=== PATIENT | male | born 1975 | race Caucasian/White ===

== ENCOUNTER 2018-03-10 00:34 | Inpatient (IN) | payer MEDICAID, OTHER ==
[~2018-03-10] VITALS: Ht 182.9 cm; Wt 101.2 kg
[2018-03-10] VITALS (74 sets, daily range): BP systolic 88–143; BP diastolic 49–86
[2018-03-10] MEDS ORDERED: SODIUM CHLORIDE 0.9% 1,000 ML IV ONE (00:51)
[2018-03-10] MEDS ORDERED: ONDANSETRON HCL 4MG/2ML INJ IV STA (00:51)
[2018-03-10] MEDS ORDERED: MORPHINE SULFATE 4 MG/ML CPJ (NOT FOR IM USE) IV STA (00:51)
[2018-03-10] MEDS ORDERED: LEVETIRACETAM 1000MG/100ML 100 ML IV ONE (01:00)
[2018-03-10] MEDS ORDERED: ETOMIDATE 2MG/ML 10ML VIAL IV ONE ×2 (01:00→13:27)
[2018-03-10] MEDS ORDERED: LORAZEPAM 2MG/ML CPJ IV ONE (01:00)
[2018-03-10] MEDS ORDERED: PROPOFOL 10MG/ML 100ML 100 ML IV ONE ×2 (01:00→04:00)
[2018-03-10] MEDS ORDERED: SUCCINYLCHOLINE CHLORIDE 200MG/10ML IV ONE ×2 (01:00→13:27)
[2018-03-10] MEDS ORDERED: SODIUM CHLORIDE 0.9% 1,000 ML IV SCH (02:11)
[2018-03-10 02:25] LABS: CHLORIDE 106 mEq/L (98-107)
[2018-03-10 02:26] LABS: HEMATOCRIT. 48.2 % (42.0-52.0); HEMOGLOBIN. 16.3 g/dL (14.0-18.0); MEAN CORPUSCULAR HEMOGLOBIN 33.4 pg (28.0-32.0); MEAN CORPUSCULAR VOLUME 98.7 fL (80.0-94.0); MEAN PLATELET VOLUME 11.4 fl (7.4-10.4); PLATELET 190 x1000/uL (130-400); RED BLOOD CELL COUNT 4.88 mill/uL (4.7-6.1); RED CELL DISTRIBUTION WIDTH 14.4 % (11.6-14.6)
[2018-03-10 02:27] LABS: PROTHROMBIN TIME 10.5 sec (9.1-11.1)
[2018-03-10 02:30] LABS: ETHANOL BLOOD < 10 mg/dL
[2018-03-10 02:31] LABS: CLARITY URINE CLEAR (CLEAR); COLOR URINE YELLOW (YELLOW); KETONES URINE 1+ (NEGATIVE); LEUKOCYTE ESTERASE URINE NEGATIVE (NEGATIVE); NITRITE URINE POSITIVE (NEGATIVE); OCCULT BLOOD URINE NEGATIVE (NEGATIVE); PH URINE 5.5 (4.5-8.0); PROTEIN URINE 2+ (NEGATIVE); SPECIFIC GRAVITY URINE 1.026 (1.005-1.030)
[2018-03-10 02:35] LABS: CREATINE KINASE 60 IU/L (39-308)
[2018-03-10 02:37] LABS: PHENOBARBITAL 29.8 ug/mL (15.0-40.0)
[2018-03-10 02:52] LABS: *AMPHETAMINES SCREEN URINE NEGATIVE (NEGATIVE); METHADONE URINE SCREEN NEGATIVE (NEGATIVE)
[2018-03-10 02:53] LABS: *COCAINE SCREEN URINE NEGATIVE (NEGATIVE); OPIATES URINE SCREEN NEGATIVE (NEGATIVE)
[2018-03-10 02:54] LABS: CANNABINOID URINE SCREEN NEGATIVE (NEGATIVE); PHENCYCLIDINE URINE SCREEN NEGATIVE (NEGATIVE)
[2018-03-10 02:55] LABS: *BARBITURATES SCREEN URINE PRESUMTIVE POSITIVE (NEGATIVE); *BENZODIAZEPINES SCREEN URINE PRESUMTIVE POSITIVE (NEGATIVE)
[2018-03-10 02:55] LABS: BG BASE EXCESS -3.9 mmol/L (-2.0-2.0); BG CARBOXYHEMOGLOBIN 0.4 % (0.5-1.5); BG DEOXYHEMOGLOBIN 0.9 % (0.0-5.0); BG FRACTION INSPIRED OXYGEN 100; BG HCO3 ACT 21.4 mmol/L (22.0-26.0); BG METHEMOGLOBIN 0.6 % (0.0-1.5); BG OXYGEN SATURATION 99.1 % (92.0-98.5); BG OXYHEMOGLOBIN 98.1 % (94.0-97.0); BG PCO2 39.9 mmHg (35.0-45.0); BG PH 7.347 (7.350-7.450); BG SAMPLE SITE RIGHT RADIAL; BG VENT MODE VENT - A/C; BG VENT RATE 16 set
[2018-03-10] MEDS ORDERED: LORAZEPAM 2MG/ML CPJ IV PRN ×2 (05:45→09:45)
[2018-03-10] MEDS ORDERED: LEVETIRACETAM 1,000 MG in SODIUM CHLORIDE 0.9% 100 ML IV SCH (06:00)
[2018-03-10] MEDS: PROPOFOL 10MG/ML 100ML 100 ML IV PRN ×5 (06:34→22:54)
[2018-03-10] MEDS: DEXT 5%/0.45% NACL KCL 20MEQ/L 1,000 ML IV SCH ×2 (06:35→16:33)
[2018-03-10 06:40] LABS: CHLORIDE 108 mEq/L (98-107)
[2018-03-10 06:41] LABS: HEMATOCRIT 47.1 % (42.0-52.0); HEMOGLOBIN 16.2 g/dL (14.0-18.0); MEAN CORPUSCULAR HEMOGLOBIN 33.7 pg (28.0-32.0); MEAN CORPUSCULAR VOLUME 97.9 fL (80.0-94.0); PLATELET 184 x1000/uL (130-400); RED BLOOD CELL COUNT 4.81 mill/uL (4.7-6.1); RED CELL DISTRIBUTION WIDTH 14.3 % (11.6-14.6)
[2018-03-10 06:44] LABS: PLATELET ESTIMATE NORMAL
[2018-03-10] MEDS: IPRATROPIUM/ALBUTEROL 0.5-3(2.5)MG/3ML NEB HHN SCH ×3 (08:43→20:11)
[2018-03-10 09:02] LABS: BG CARBOXYHEMOGLOBIN 0.1 % (0.5-1.5); BG DEOXYHEMOGLOBIN 0.8 % (0.0-5.0); BG FRACTION INSPIRED OXYGEN 85; BG HCO3 ACT 20.1 mmol/L (22.0-26.0); BG METHEMOGLOBIN 0.1 % (0.0-1.5); BG OXYGEN SATURATION 99.2 % (92.0-98.5); BG PCO2 31.2 mmHg (35.0-45.0); BG PH 7.427 (7.350-7.450); BG PO2 156.8 mmHg (75.0-100.0); BG SAMPLE SITE RIGHT RADIAL; BG TIDAL VOLUME(mL) 550 mL; BG VENT MODE VENT - A/C; BG VENT RATE 16 set
[2018-03-10] MEDS: PANTOPRAZOLE SODIUM 40 MG/VIAL IV SCH (09:09)
[2018-03-10] MEDS ORDERED: CEFTRIAXONE 1,000 MG in DEXTROSE 5% WATER 50 ML IV SCH (09:30)
[2018-03-10] MEDS ORDERED: ACETAMINOPHEN 325MG TABLET PO PRN (09:30)
[2018-03-10] MEDS: CEFTRIAXONE 1 G PREMIX 50 ML IV SCH (12:37)
[2018-03-10] MEDS ORDERED: PHENYTOIN SODIUM 1,000 MG in SODIUM CHLORIDE 0.9% 100 ML IV SCH (15:30)
[2018-03-10] MEDS: LEVETIRACETAM 500 MG in SODIUM CHLORIDE 0.9% 100 ML IV SCH (18:17)
[2018-03-10] MEDS: PHENOBARBITAL 100MG TABLET PO SCH (18:20)
[2018-03-11] VITALS (91 sets, daily range): BP systolic 105–146; BP diastolic 61–92
[2018-03-11] MEDS: DEXT 5%/0.45% NACL KCL 20MEQ/L 1,000 ML IV SCH ×3 (01:11→15:16)
[2018-03-11] MEDS: IPRATROPIUM/ALBUTEROL 0.5-3(2.5)MG/3ML NEB HHN SCH ×4 (02:00→19:50)
[2018-03-11] MEDS: PROPOFOL 10MG/ML 100ML 100 ML IV PRN ×3 (02:44→12:26)
[2018-03-11] MEDS: PHENOBARBITAL 100MG TABLET PO SCH ×2 (05:27→17:45)
[2018-03-11] MEDS: LEVETIRACETAM 500 MG in SODIUM CHLORIDE 0.9% 100 ML IV SCH ×2 (05:33→17:45)
[2018-03-11 05:42] LABS: HEMATOCRIT. 44.3 % (42.0-52.0); HEMOGLOBIN. 14.8 g/dL (14.0-18.0); MEAN CORPUSCULAR HEMOGLOBIN 32.8 pg (28.0-32.0); MEAN CORPUSCULAR VOLUME 98.3 fL (80.0-94.0); MEAN PLATELET VOLUME 10.3 fl (7.4-10.4); PLATELET 148 x1000/uL (130-400); RED BLOOD CELL COUNT 4.51 mill/uL (4.7-6.1); RED CELL DISTRIBUTION WIDTH 14.2 % (11.6-14.6)
[2018-03-11 07:42] LABS: BG BASE EXCESS -1.3 mmol/L (-2.0-2.0); BG CARBOXYHEMOGLOBIN 0.7 % (0.5-1.5); BG DEOXYHEMOGLOBIN 2.7 % (0.0-5.0); BG HCO3 ACT 23.1 mmol/L (22.0-26.0); BG METHEMOGLOBIN 0.5 % (0.0-1.5); BG OXYGEN SATURATION 97.3 % (92.0-98.5); BG OXYHEMOGLOBIN 96.1 % (94.0-97.0); BG PCO2 37.8 mmHg (35.0-45.0); BG PH 7.404 (7.350-7.450); BG PO2 93.2 mmHg (75.0-100.0); BG SAMPLE SITE RIGHT RADIAL; BG TIDAL VOLUME(mL) 550 mL; BG VENT MODE VENT - A/C; BG VENT RATE 16 set
[2018-03-11] MEDS: PANTOPRAZOLE SODIUM 40 MG/VIAL IV SCH (08:12)
[2018-03-11 09:02] LABS: CHLORIDE 112 mEq/L (98-107)
[2018-03-11 09:42] LABS: PLATELET ESTIMATE NORMAL
[2018-03-11] MEDS: CEFTRIAXONE 1 G PREMIX 50 ML IV SCH (11:17)
[2018-03-11] MEDS: PHENYTOIN SODIUM 300 MG in SODIUM CHLORIDE 0.9% 50 ML IV SCH ×2 (12:25→20:19)
[2018-03-11] MEDS ORDERED: PROPOFOL 10MG/ML 100ML 100 ML IV PRN (16:15)
[2018-03-11] MEDS ORDERED: PHENYTOIN SODIUM 500 MG in SODIUM CHLORIDE 0.9% 100 ML IV SCH (17:00)
[2018-03-11] MEDS ORDERED: PHENYTOIN SODIUM 300 MG in SODIUM CHLORIDE 0.9% 50 ML IV SCH (21:00)
[2018-03-11] MEDS ORDERED: PHENYTOIN SODIUM 100MG/2ML VIAL IV SCH (21:00)
== END 2018-03-11 22:15 | disposition short-term general hospital (02) | DRG 871 ==
LOC: ER 00:34 → EDBD 00:34 → MICUSO 02:11 → EDBEDREQ 02:26 → EDBEDREQTM 02:26 → EDBEDREQSVC 02:26 → ENRESERV 02:58
PROVIDERS: ADMIT Internal Medicine; ATTEND Internal Medicine
PROC: 5A1945Z Respiratory Ventilation, 24-96 Consecutive Hours (ICD-10-PCS; principal; 2018-03-10)
PROC: 0BH17EZ Insertion of Endotracheal Airway into Trachea, Via Natural or Artificial Opening (ICD-10-PCS; 2018-03-10)
PROC: 05H533Z Insertion of Infusion Device into Right Subclavian Vein, Percutaneous Approach (ICD-10-PCS; 2018-03-10)
DX: A41.9 Sepsis, unspecified organism (principal); J96.00 Acute respiratory failure, unspecified whether with hypoxia or hypercapnia; E44.1 Mild protein-calorie malnutrition; E87.2 Acidosis; N39.0 Urinary tract infection, site not specified; E66.9 Obesity, unspecified; R62.50 Unspecified lack of expected normal physiological development in childhood; G40.401 Other generalized epilepsy and epileptic syndromes, not intractable, with status epilepticus; L40.9 Psoriasis, unspecified; Z78.1 Physical restraint status; Z68.30 Body mass index [BMI] 30.0-30.9, adult; Z90.49 Acquired absence of other specified parts of digestive tract; Z79.899 Other long term (current) drug therapy
CPT/HCPCS: 36415; 36600; 70450; 70551; 71045; 80048; 80053; 80184; 80185; 80305; 81003; 82375; 82550; 82805; 83605; 84134; 84478; 84484; 85025; 85027; 85610; 86850; 86900; 87040; 87070; 87077; 87086; 87186; 93005; 93970; 94002; 94003; 94640; 96365; 96375; 99291; A6261; C9113; G0482; J0330; J0696; J1165; J1953; J2060; J2270; J2405; J2704; J3490; J7030; J7050; J7060; J7620; A4315